=== PATIENT | female | born 2000 | race Caucasian/White ===

== ENCOUNTER 2023-04-23 15:32 | Emergency (ER) | payer OTHER ==
[2023-04-23 15:47] VITALS: BMI 25.9
[2023-04-23 17:09] LABS: BASO % 0.9 % (0-2.0); EOS % 1.1 % (0-4.5); HEMATOCRIT 40.7 % (32.4-45.2); HEMOGLOBIN 13.7 GM/dL (10.7-15.3); LYMPH % 23.9 % (8-40); MCH 32.4 pg (25.7-33.7); MCHC 33.7 g/dl (32.0-36.0); MEAN CELL VOLUME 96.3 fl (80-96); MONO % 7.5 % (3.8-10.2); NEUT % 66.6 % (42.8-82.8); PLATELET COUNT 235 10^3/uL (134-434); RBC 4.22 M/mm3 (3.60-5.2); RDW 13.1 % (11.6-15.6); WHITE BLOOD COUNT 7.7 K/mm3 (4.0-10.0)
[2023-04-23 17:12] LABS: EPI CELLS >36 /uL (0-25.1); HYALINE CASTS 0 /uL (0-3.1); PH,URINE 5.5 (5.0-8.0); URINE APPEARANCE CLEAR; URINE BACTERIA 222 /uL (0-1359); URINE BILIRUBIN NEGATIVE (NEGATIVE); URINE COLOR ORANGE; URINE GLUCOSE (UA) NEGATIVE (NEGATIVE); URINE KETONE NEGATIVE (NEGATIVE); URINE LEUK ESTERASE 1+ (NEGATIVE); URINE NITRITE NEGATIVE (NEGATIVE); URINE PROTEIN 2+ (NEGATIVE); URINE RBC 1045 /uL (0-23.9); URINE WBC 70 /uL (0-25.8)
[2023-04-23 17:14] LABS: INR 1.11 (0.83-1.09); PROTHROMBIN TIME (PATIENT) 12.9 SEC (9.7-13.0)
[2023-04-23 17:17] LABS: ACTIVATED PTT 30.2 SECONDS (25.2-36.5)
[2023-04-23 17:35] LABS: POTASSIUM 3.5 mmol/L (3.5-5.1)
[2023-04-23 17:39] LABS: BLOOD UREA NITROGEN 11.6 mg/dL (7-18); CALCIUM 8.6 mg/dL (8.5-10.1)
[2023-04-23 17:40] LABS: ALBUMIN 3.6 g/dl (3.4-5.0)
[2023-04-23 17:42] LABS: CREATININE 0.7 mg/dL (0.55-1.3)
[2023-04-23 17:44] LABS: BILIRUBIN,TOTAL 0.7 mg/dL (0.2-1); TOT PROT 7.5 g/dl (6.4-8.2)
[2023-04-23 18:27] VITALS: BP 120/74; PULSE 74; RESP 18; TEMP 98
== END 2023-04-23 18:27 | disposition home or self-care (01) ==
LOC: JER 15:32
DX: R10.30 Lower abdominal pain, unspecified (principal); K59.00 Constipation, unspecified; N92.6 Irregular menstruation, unspecified; Z20.822 Contact with and (suspected) exposure to COVID-19
CPT/HCPCS: 0241U-QW; 36415; 80053; 81003; 82272; 84703; 85025; 85610; 85730; 87086; 93005; 93010; 99284-25

== ENCOUNTER 2023-05-24 03:25 | Emergency (ER) | payer OTHER ==
[2023-05-24 03:40] VITALS: BP 113/68; PULSE 70; RESP 18; TEMP 98.2; BMI 22.6
[2023-05-24] MEDS ORDERED: CLINDAMYCIN HCL 150 MG CAPSULE (FP) PO ONE (03:56)
[2023-05-24] MEDS ORDERED: CLINDAMYCIN HCL 150 MG CAPSULE (FP) ONE (04:08)
== END 2023-05-24 05:09 | disposition home or self-care (01) ==
LOC: JER 03:25
DX: R21 Rash and other nonspecific skin eruption (principal); L81.8 Other specified disorders of pigmentation
CPT/HCPCS: 84703; 99283-25